=== PATIENT | female | born 1950 | race African-American/Black ===

== ENCOUNTER → 2018-03-28 | Outpatient (CLI) | payer OTHER, MEDICAID | END | disposition home or self-care (01) | LOC: KCIC US 08:33 | DX: R10.13 Epigastric pain (principal) | CPT/HCPCS: 76700 ==

== ENCOUNTER → 2018-04-04 | Day surgery (SDC) | payer OTHER ==
[~2018-04-04] MED LIST: LIDOCAINE 2% PF Vial for OR 5 ML VIAL.; PROPOFOL 40 ML IV
[2018-04-04] MEDS: IV RINGERS,LACTATED 1000ML 1,000 ML IV (09:45)
== END | disposition home or self-care (01) ==
LOC: SURG 09:15
DX: K57.30 Diverticulosis of large intestine without perforation or abscess without bleeding (principal); R10.13 Epigastric pain; I10 Essential (primary) hypertension; E78.00 Pure hypercholesterolemia, unspecified; Z90.710 Acquired absence of both cervix and uterus; Z90.79 Acquired absence of other genital organ(s); Z90.722 Acquired absence of ovaries, bilateral; Z79.899 Other long term (current) drug therapy; Z88.0 Allergy status to penicillin; Z98.51 Tubal ligation status
CPT/HCPCS: 43235; 45378; J2704

== ENCOUNTER → 2021-01-14 | Outpatient (CLI) | payer OTHER, MEDICAID ==
[2018-04-04 10:35] VITALS: BP 130/73
[~2021-01-14] MED LIST changes: +AMLO-186 PO; +ATORVASTATIN CA80 MG PO; +HYDR12.575 PO; -LIDOCAINE 2% PF Vial for OR 5 ML VIAL.; +PANT20TA2 PO; +POTA10TA12 PO; -PROPOFOL 40 ML IV
--- NOTE | 2021-01-15 12:19 | RAD ---
DATE: 01/14/2021 2:55 PM EXAM: MAMMO GABI SCREENING BILATERAL HISTORY: Screening COMPARISON: None. This is a baseline P Bilateral CC and MLO views of the breasts were performed. Bilateral breast tomosynthesis was performed in CC and MLO projections. This study was interpreted with the benefit of Computerized Aided Detection (CAD). FINDINGS: Breast Density: SCATTERED The breast parenchyma shows scattered fibroglandular densities. Breast parenchyma level B Negative right mammogram Isodense oval mass in the subareolar left breast measuring approximately 12 mm with obscured margins is best appreciated on tomographic CC image 31 of 66 and tomographic MLO image 29 of 71. It needs additional imaging with spot compression views in the CC and true lateral projections along with targeted ultrasound of the subareolar left breast. IMPRESSION: Left breast mass, findings for which additional imaging is advised. BI-RADS CATEGORY: 0 INCOMPLETE: NEEDS ADDITIONAL IMAGING EVALUATION AND/OR PRIOR MAMMOGRAMS FOR COMPARISON. RECOMMENDED FOLLOW-UP: ADD ADDITIONAL IMAGING The patient will be contacted to return for additional imaging and a supplemental report will follow. PQRS compliance statement: Patient information was entered into a reminder system with a target due date for the next mammogram. Mammography is a sensitive method for finding small breast cancers, but it does not detect them all and is not a substitute for careful clinical examination. A negative mammogram does not negate a clinically suspicious finding and should not result in delay in biopsying a clinically suspicious abnormality. "Our facility is accredited by the [employer] Mammography [employer]."
== END ==
LOC: MAMMO 14:45
PROVIDERS: ATTEND Internal Medicine
DX: Z12.31 Encounter for screening mammogram for malignant neoplasm of breast (principal)
CPT/HCPCS: 77063; 77067

== ENCOUNTER → 2021-02-10 | Outpatient (CLI) | payer OTHER, MEDICAID ==
[2018-04-04 10:35] VITALS: BP 130/73
--- NOTE | 2021-02-10 13:49 | RAD ---
EXAM: Left breast diagnostic mammogram; left breast sonogram. HISTORY: 70-year-old female presents for evaluation of findings within the left breast demonstrate on a screening mammogram dated 01/14/2021. TECHNIQUE: Full-field and spot compression views of the left breast are obtained. Sonographic imaging was also performed. COMPARISON: 01/14/2021 BREAST PARENCHYMAL DENSITY: Level B - Scattered fibroglandular densities. FINDINGS: The nodularity of concern within the left breast appears to resolve with additional spot co mpression views, favoring benign fibroglandular tissue. There is no persistent mass or suspicious arc hitectural distortion. There is no suspicious calcification. There is no suspicious sonographic corre late. There is a small lipoma measuring 4 mm at the 12:00 retroareolar location. There are benign axi llary lymph nodes. IMPRESSION: 1. No convincing persistent suspicious mammographic or sonographic finding within the left breast. 2. BI-RADS Category 3: Probably benign finding(s). Short term follow up with a diagnostic left breast mammogram in 6 months is recommended to confirm stability given the absence of comparison mammograms . If your mammogram demonstrates that you have dense breast tissue, which could hide abnormalities, and if you have other risk factors for breast cancer that have been identified, you might benefit from s upplemental screening tests that may be suggested by your ordering physician. Dense breast tissue, i n and of itself, is a relatively common condition. This information is not provided to cause undue c oncern, but rather to raise your awareness and to promote discussion with your physician regarding th e presence of other risk factors, in addition to dense breast tissue. A report of your mammography re sults will be sent to you and your physician. You should contact your physician if you have any ques tions or concerns regarding this report. Mammography is a sensitive method for finding small breast cancers, but it does not detect them all a nd is not a substitute for careful clinical examination. A negative mammogram does not negate a clin ically suspicious finding and should not result in delay in biopsying a clinically suspicious abnorma lity. PQRS compliance statement - Patient information was entered into a reminder system with a target due date for the next mammogram. "Our facility is accredited by the [employer] Mammography [employer]." Electronically signed by: Melody Farmer MD (02/10/2021 1:47 PM) [id number]
== END ==
LOC: MAMMO 13:01
PROVIDERS: ATTEND Internal Medicine
DX: N63.20 Unspecified lump in the left breast, unspecified quadrant (principal)
CPT/HCPCS: 76641; 77065

== ENCOUNTER → 2021-02-23 | Outpatient (CLI) | payer OTHER, MEDICAID ==
[2018-04-04 10:35] VITALS: BP 130/73
--- NOTE | 2021-02-23 15:45 | KCIC ---
3 views right shoulder 02/23/2021 11:37 AM Indication: Reason: Rt shoulder pain 2 weeks. Pain w/certain arm movements. / Spl. Instructions: / H istory: Comparison: None Findings: There is no fracture or dislocation. Articular surfaces are uninterrupted. There is a bulky , irregular osteophyte extending inferiorly from the acromion. Soft tissue changes are identified. IMPRESSION: 1.No evidence of acute osseous abnormality 2. Bulky somewhat irregular osteophyte extending inferiorly from the acromion. Finding may predispose patient for rotator cuff pathology. Correlate with physical exam findings consider MRI as clinically indicated. Electronically signed by: Jame He MD (02/23/2021 3:43 PM) [id number]
== END ==
LOC: KCIC 11:33
PROVIDERS: ATTEND Internal Medicine
DX: M25.711 Osteophyte, right shoulder (principal)
CPT/HCPCS: 73030

== ENCOUNTER → 2021-07-29 | Outpatient (CLI) | payer OTHER, MEDICAID ==
[2018-04-04 10:35] VITALS: BP 130/73
--- NOTE | 2021-07-29 10:03 | KCIC ---
Left diagnostic 2-D and 3-D (digital breast tomosynthesis) mammogram: Reason for examination: Follow-up of nodularity in the retroareolar region of the left breast on base line mammogram. Comparison: None mammograms from 01/14/2021 and 02/10/2021. Left breast ultrasound from 02/10/2021. FINDINGS: Breast density: Category B. There are scattered areas of fibroglandular density. The area of nodularity in the retroareolar region left breast seen best on the CC view about 5 cm pos terior to the nipple has not increased in size. This does not appear discretely masslike on additiona l imaging is probably due to normal fibroglandular tissue. It has no correlate on previous ultrasound . No suspicious breast mass, malignant appearing calcifications, or architectural distortion is seen. IMPRESSION: The area of concern on previous mammogram has not increased in size and does not appear masslike and is probably due to normal focal fibroglandular tissue. Return to routine annual mammograms in December 2021 is recommended. Assessment: BI-RADS 2. Benign findings. Recommendation: Return to routine screening mammograms. Results were given to the patient at time of exam. The patient will receive a letter with the results in the mail. Patient information will be entered into the mammography reminder system with a target recall date for the next mammogram. A reminder letter will be generated. Electronically signed by: Hamida Walsh MD (07/29/2021 10:00 AM) [id number]
--- NOTE | 2021-07-29 10:49 | KCIC ---
EXAM: DUAL ENERGY X-RAY ABSORPTIOMETRY (DEXA). HISTORY: Postmenopausal screening. FINDINGS: The lowest measured T-score is -0.3 in the lumbar spine, based on a bone mineral density of 1.018 g/cm^2. Refer to the worksheets for full detail. No comparison examinations are available. IMPRESSION: 1. Normal. Bone mineral density yields a T-score of -1.0 or greater. Fracture risk is low. 2. FRAX report: Not calculated. METHODOLOGY: Dual energy x-ray absorptiometry was performed to measure bone mineral density. The foll owing analysis is based on the 2019 Official Positions of the International Society for Clinical Dens itometry: Measurements of the hips and the average of L1-L4 are preferred. When the spine and/or hip cannot be feasibly measured or interpreted, or in the setting of hyperparathyroidism, distal radial bone minera l density may be measured. The lumbar spine T-score is based on the average bone mineral density of L1-L4. In the setting of art ifact or anatomic abnormality, some lumbar levels may be excluded, and the remaining levels used for calculation. A single lumbar level is not used for diagnosis, and if only a single level is available for assessment, another anatomic site will be used to assign a diagnosis. The hip T-score is based on the bone mineral density measurement of the femoral neck or total proxima l femur of either side, whichever is lowest. Bilateral mean values are not used for diagnosis. The forearm T-score is derived from 33% of the distal radius of the nondominant forearm. Electronically signed by: Melody Farmer MD (07/29/2021 10:46 AM) [id number]
== END ==
LOC: KCIC MAMMO 08:53
PROVIDERS: ATTEND Internal Medicine
DX: M81.0 Age-related osteoporosis without current pathological fracture (principal)
CPT/HCPCS: 77065; 77080; G0279; 77061

== ENCOUNTER → 2021-08-12 | Outpatient (CLI) | payer OTHER, MEDICAID ==
[2018-04-04 10:35] VITALS: BP 130/73
--- NOTE | 2021-08-12 12:41 | KCIC ---
3 views right knee 08/12/2021 11:04 AM Indication: Reason: Chronic Rt knee pain. / Spl. Instructions: / History: Comparison: None Findings: No fracture or dislocation is identified. There is degenerative change of the right knee in cluding mild lateral compartment joint space narrowing. There appears to be patellofemoral joint spac e narrowing and osteophytosis. No significant effusion is appreciated. No acute soft tissue changes a re seen. Prominent varicosities noted in the medial left leg. IMPRESSION: Degenerative changes right knee as described without evidence of acute osseous abnormalit y Electronically signed by: Jame He MD (08/12/2021 12:39 PM) [id number]
== END ==
LOC: KCIC 10:59
PROVIDERS: ATTEND Internal Medicine
DX: M17.11 Unilateral primary osteoarthritis, right knee (principal); I83.92 Asymptomatic varicose veins of left lower extremity
CPT/HCPCS: 73562

== ENCOUNTER → 2021-12-02 | Outpatient (CLI) | payer OTHER, MEDICAID ==
[2018-04-04 10:35] VITALS: BP 130/73
--- NOTE | 2021-12-02 09:34 | KCIC ---
Bilateral diagnostic digital mammograms with 3-D tomosynthesis: Reason for examination: Right breast pain in the upper outer quadrant with possible nodule on clinica l exam by the physician. Comparison is made to previous studies dated 01/14/2021 and 02/10/2021. Bilateral mammograms in CC and oblique projections were obtained with 2-D imaging and 3-D tomosynthes is imaging on a Siemens Inspiration unit and reviewed on the workstation. Interpretation was made wit h the benefit of CAD. The skin and nipples show no abnormalities. No abnormal axillary lymph nodes are seen. The breast par enchyma shows scattered fatty and fibroglandular density. (Breast density: Category B.) There continu es to be some nodularity at the 12:00 position anteriorly in the left breast which is stable. There i s also some parenchymal asymmetry at the 2:00 B position of the left breast which is stable. There al so continues to be some nodular asymmetry in the central 3:00 B position of the right breast which is stable. There are no new dominant masses, suspicious calcifications or architectural distortion. Impression: No new or suspicious-appearing abnormality seen in either breast. Ultrasound to follow. BI-RAD Category 0: Incomplete. Needs additional imaging evaluation. Right breast ultrasound: Ultrasound examination was performed with attention to the upper outer quadrant and axilla. No discrete cystic or solid nodules are seen. No abnormal appearing lymph nodes are seen in the axill a. IMPRESSION: No suspicious abnormality seen in the upper outer quadrant. Recommend routine mammographic follow-up. BI-RADS Category 2: Benign. "Our facility is accredited by the [employer] Mammography [employer]." This patient's information has been entered into a reminder system for the patient to be notified wit h the results of her examination and a target date for the next mammogram. Electronically signed by: Hollie Rasheed MD (12/02/2021 9:32 AM) [email or web address]
--- NOTE | 2021-12-02 09:41 | KCIC ---
EXAM: Pelvic sonogram. HISTORY: Pelvic and perineal pain. TECHNIQUE: Transabdominal sonographic imaging of the pelvis was performed. COMPARISON: None. FINDINGS: The uterus is surgically absent. The ovaries are small, consistent with the postmenopausal status of the patient. There is normal blood flow within both ovaries. No adnexal mass or cyst is see n. There is no pelvic free fluid. IMPRESSION: 1. Surgically absent uterus. 2. Normal-appearing postmenopausal ovaries. Electronically signed by: Melody Farmer MD (12/02/2021 9:39 AM) [id number]
== END ==
LOC: KCIC MAMMO 08:24
PROVIDERS: ATTEND Obstetrics & Gynecology
DX: Z01.411 Encounter for gynecological examination (general) (routine) with abnormal findings (principal); N64.4 Mastodynia; R10.2 Pelvic and perineal pain; N63.10 Unspecified lump in the right breast, unspecified quadrant; N63.20 Unspecified lump in the left breast, unspecified quadrant; Z90.710 Acquired absence of both cervix and uterus
CPT/HCPCS: 76641; 76856; 77066; G0279; 77062